=== PATIENT | male | born 1955 | race Caucasian/White ===

== ENCOUNTER 2021-05-28 08:51 | Inpatient (IN) ==
[2021-05-28] MEDS ORDERED: 0.9 % Sodium Chloride 1,000 ML IVC ONE (09:40)
[2021-05-28] MEDS ORDERED: *HR* FentaNYL (PF) 100 MCG/2 ML VIAL IVP ONE (09:41)
[2021-05-28] MEDS ORDERED: Ondansetron 4 MG/2 ML VIAL ONE (10:11)
[2021-05-28] MEDS ORDERED: Ondansetron 4 MG/2 ML VIAL IVP ONE (10:11)
[2021-05-28 11:03] LABS: Hematocrit 39.2 % (37.5-50.1); Hemoglobin 13.3 g/dL (12.9-16.9); Mean Corpuscular HGB Conc 33.9 g/dL (31.6-35.5); Mean Corpuscular Hemoglobin 31.2 pg (28.0-33.3); Mean Platelet Volume 8.9 fL (9.4-12.4); Platelet Count 209 K/mcL (140-400); Red Blood Count 4.26 M/mcL (4.19-5.50); Red Cell Distribution Width 12.4 % (11.5-14.5); White Blood Count 24.8 K/mcL (4.3-11.1)
[2021-05-28 11:08] LABS: Bacteria,Urine Few per hpf (None-Few); Bilirubin,Urine Negative (Negative); Blood,Urine Large (Negative); Clarity,Urine Turbid (Clear); Color,Urine Yellow (Yellow); Glucose,Urine (UA) Normal (Normal); Ketones,Urine Trace mg/dL (Negative); Leukocyte Esterase,Urine Large (Negative); Mucus,Urine Few per lpf (None-Few); Nitrite,Urine Negative (Negative); PH,Urine 5.5 pH Units (5.0-8.0); Protein,Urine 50 mg/dL (Neg-Trace); RBC,Urine 15-30 per hpf (0-3); Specific Gravity,Urine 1.019 (1.010-1.025); Squamous Epithelial Cell,Urine Few per hpf (None-Few); Urobilinogen,Urine Normal (Normal); WBC,Urine TNTC per hpf (0-3)
[2021-05-28 11:56] LABS: Albumin 3.1 g/dL (3.5-5.7); Bilirubin,Total 0.9 mg/dL (0.3-1.0); Calcium 8.5 mg/dL (8.6-10.3); Potassium 4.7 mEq/L (3.5-5.1); Total Protein 6.1 g/dL (6.4-8.9)
[2021-05-28] MEDS ORDERED: cefTRIAXone 1,000 MG in 0.9 % Sodium Chloride Mini Bag 100 ML IVPB ONE (12:03)
[2021-05-28 12:09] LABS: Lymphocytes # 0.7 K/mcL (0.6-4.6); Neutrophils # 23.1 K/mcL (1.6-8.9)
[2021-05-28 12:11] LABS: Platelet Estimate Normal (Normal)
[2021-05-28 12:28] LABS: INR 1.4; Prothrombin Time 16.1 Seconds (9.4-12.1)
[2021-05-28 12:30] LABS: Activated Partial Thrombo Time 29.3 Seconds (26.0-36.0)
[2021-05-28 12:36] LABS: Troponin I 0.03 ng/mL (< 0.04)
[2021-05-28] MEDS ORDERED: Ondansetron 4 MG/2 ML VIAL IVP PRN (15:39)
[2021-05-28] MEDS ORDERED: Naloxone 0.4 MG/ML INJ IVP PRN (15:39)
[2021-05-28] MEDS ORDERED: *HR* HYDROcodone/Acet 5/325 mg TABLET PO PRN (15:39)
[2021-05-28] MEDS ORDERED: Acetaminophen 325 MG TABLET PO PRN (15:39)
[2021-05-28] MEDS: *HR* OxyCODONE Immed Rel 5 MG TABLET PO PRN ×2 (17:02→23:32)
[2021-05-28] MEDS: Sodium Bicarbonate 75 MEQ in 0.45 % Sodium Chloride 1,000 ML IVC SCH (18:09)
[2021-05-29 05:55] LABS: Basophils # 0.1 K/mcL (0.0-0.2); Basophils % 0.4 %; Eosinophils # 0.1 K/mcL (0.0-0.6); Eosinophils % 0.4 %; Hematocrit 40.2 % (37.5-50.1); Hemoglobin 13.7 g/dL (12.9-16.9); Immature Granulocytes % 1.1 % (0-4); Lymphocytes # 1.5 K/mcL (0.6-4.6); Lymphocytes % 8.6 %; Mean Corpuscular HGB Conc 34.1 g/dL (31.6-35.5); Mean Corpuscular Hemoglobin 31.6 pg (28.0-33.3); Mean Corpuscular Volume 92.6 fL (83.0-100.0); Mean Platelet Volume 9.1 fL (9.4-12.4); Monocytes # 1.2 K/mcL (0.0-1.3); Monocytes % 7.1 %; Neutrophils # 14.1 K/mcL (1.6-8.9); Platelet Count 219 K/mcL (140-400); Red Blood Count 4.34 M/mcL (4.19-5.50); Red Cell Distribution Width 12.2 % (11.5-14.5); Segmented Neutrophils % 82.4 %; White Blood Count 17.1 K/mcL (4.3-11.1)
[2021-05-29 06:12] LABS: Calcium 8.8 mg/dL (8.6-10.3); Magnesium 2.2 mg/dL (1.6-2.6); Potassium 4.1 mEq/L (3.5-5.1)
[2021-05-29] MEDS: Sodium Bicarbonate 75 MEQ in 0.45 % Sodium Chloride 1,000 ML IVC SCH (06:34)
[2021-05-29] MEDS ORDERED: Ondansetron 4 MG/2 ML VIAL IVP PRN ×2 (08:41→10:44)
[2021-05-29] MEDS ORDERED: *HR* FentaNYL (PF) 100 MCG/2 ML VIAL IVP PRN ×2 (08:41→10:44)
[2021-05-29] MEDS ORDERED: Acetaminophen IV 1,000 MG/100 ML BAG IVPB ONE ×2 (08:49→09:30)
[2021-05-29] MEDS ORDERED: *HR* Propofol 200 MG/20 ML VIAL IVP ONE (08:49)
[2021-05-29] MEDS ORDERED: Ondansetron 4 MG/2 ML VIAL ONE (08:54)
[2021-05-29] MEDS ORDERED: Lidocaine -MPF 2% 5 ML VIAL ONE (08:54)
[2021-05-29] MEDS ORDERED: *HR* FentaNYL (PF) 100 MCG/2 ML VIAL ONE (08:55)
[2021-05-29] MEDS ORDERED: Isovue-300 50ML VIAL ONE (08:58)
[2021-05-29] MEDS ORDERED: Aspirin Enteric Coated 81 MG Tablet PO SCH (09:00)
[2021-05-29] MEDS ORDERED: EPHEDrine 50 MG/ML VIAL ONE (09:29)
[2021-05-29] MEDS ORDERED: *HR* HYDROcodone/Acet 5/325 mg TABLET PO PRN (10:44)
[2021-05-29] MEDS ORDERED: Naloxone 0.4 MG/ML INJ IVP PRN (10:44)
[2021-05-29] MEDS ORDERED: Sodium Bicarbonate 75 MEQ in 0.45 % Sodium Chloride 1,000 ML IVC SCH (10:44)
[2021-05-29] MEDS ORDERED: *HR* OxyCODONE Immed Rel 5 MG TABLET PO PRN (10:44)
[2021-05-29] MEDS ORDERED: Acetaminophen 325 MG TABLET PO PRN (10:44)
[2021-05-29] MEDS ORDERED: cefTRIAXone 1,000 MG in 0.9 % Sodium Chloride 10 ML IVP SCH ×2 (12:00)
[2021-05-29] MEDS ORDERED: cefTRIAXone 1,000 MG in 0.9 % Sodium Chloride 10 ML IVPB ONE (17:00)
[2021-05-30 01:00] LABS: Basophils % 0.2 %; Eosinophils % 0.1 %; Hematocrit 40.9 % (37.5-50.1); Hemoglobin 14.3 g/dL (12.9-16.9); Immature Granulocytes % 1.4 % (0-4); Lymphocytes # 1.1 K/mcL (0.6-4.6); Mean Corpuscular Hemoglobin 32.1 pg (28.0-33.3); Mean Corpuscular Volume 91.9 fL (83.0-100.0); Mean Platelet Volume 9.3 fL (9.4-12.4); Monocytes % 4.9 %; Neutrophils # 18.7 K/mcL (1.6-8.9); Platelet Count 257 K/mcL (140-400); Red Blood Count 4.45 M/mcL (4.19-5.50); Red Cell Distribution Width 12.3 % (11.5-14.5); Segmented Neutrophils % 88.4 %; White Blood Count 21.2 K/mcL (4.3-11.1)
[2021-05-30 01:18] LABS: Calcium 8.7 mg/dL (8.6-10.3); Magnesium 2.1 mg/dL (1.6-2.6); Potassium 4.5 mEq/L (3.5-5.1)
[2021-05-30] MEDS: Aspirin Enteric Coated 81 MG Tablet PO SCH (07:58)
[2021-05-30] MEDS ORDERED: cefTRIAXone 2,000 MG in 0.9 % Sodium Chloride 20 ML IVPB SCH (09:00)
[2021-05-30] MEDS ORDERED: levoFLOXacin 750 MG/150 ML 750 MG/150 ML BAG IVPB SCH (12:00)
[2021-05-31 06:05] LABS: Basophils # 0.1 K/mcL (0.0-0.2); Eosinophils # 0.2 K/mcL (0.0-0.6); Hematocrit 41.4 % (37.5-50.1); Immature Granulocytes % 3.1 % (0-4); Lymphocytes # 2.1 K/mcL (0.6-4.6); Lymphocytes % 18.8 %; Mean Corpuscular HGB Conc 33.8 g/dL (31.6-35.5); Mean Corpuscular Hemoglobin 31.5 pg (28.0-33.3); Mean Platelet Volume 8.8 fL (9.4-12.4); Monocytes # 0.8 K/mcL (0.0-1.3); Monocytes % 7.3 %; Neutrophils # 7.4 K/mcL (1.6-8.9); Platelet Count 302 K/mcL (140-400); Red Blood Count 4.45 M/mcL (4.19-5.50); Red Cell Distribution Width 12.4 % (11.5-14.5); Segmented Neutrophils % 67.8 %
[2021-05-31 06:19] LABS: Calcium 9.2 mg/dL (8.6-10.3); Potassium 4.4 mEq/L (3.5-5.1)
[2021-05-31 06:42] VITALS: BP 123/70; PULSE 58; TEMP 97.9; O2SAT 93
[2021-05-31] MEDS: Aspirin Enteric Coated 81 MG Tablet PO SCH (08:18)
== END 2021-05-31 13:47 | disposition home or self-care (01) | DRG 853 ==
LOC: EMEROOARM 08:51 → 2ANU 08:51 → SUATTDRO 14:03 → 2ANU 14:46
PROVIDERS: ADMIT Pharmacist; ATTEND Pharmacist